=== PATIENT | female | born 1985 | race Caucasian/White ===

== ENCOUNTER 2016-08-23 18:13 | Emergency (ER) | payer OTHER ==
[2016-08-23 19:19] VITALS: BP 112/75; PULSE 80; TEMP 98.2; BMI 36.3
[2016-08-23] MEDS ORDERED: ACETAMINOPHEN 500 MG TABLET (FP) PO ONE (20:16)
[2016-08-23] MEDS ORDERED: ACETAMINOPHEN 500 MG TABLET (FP) ONE (20:23)
--- NOTE | 2016-08-23 20:29 | PDOC ---
[id number] [id number] RT KNEE PAIN Time Seen by Provider: 08/23/16 19:24 - History of Present Illness Initial Comments: 08/23/16 20:16 CHIEF COMPLAINT: R knee pain HISTORY OF PRESENT ILLNESS: 31 yo F presents to ED with pain to R knee. No recent travel or sick contacts. PAST MEDICAL HISTORY: Denies past medical history FAMILY HISTORY: Denies SURGICAL HISTORY: Denies ALLERGIES: No known drug allergies REVIEW OF SYSTEMS General/Constitutional: Denies fever or chills. Denies weakness, weight change. HEENT: Denies change in vision. Denies ear pain or discharge. Denies sore throat. Cardiovascular: Denies chest pain or shortness of breath. Respiratory: Denies cough, wheezing, or hemoptysis. Gastrointestinal: Denies nausea, vomiting, diarrhea or constipation. Denies rectal bleeding. Genitourinary: Denies dysuria, frequency, or change in urination. Musculoskeletal: R knee pain.Denies joint or muscle swelling or pain. Denies neck or back pain. Skin and breasts: Denies rash or easy bruising. PHYSICAL EXAM General Appearance: Well-appearing, appropriately dressed. No apparent distress , no intoxication. Respiratory/Chest: Lungs CTAB. Cardiovascular: RRR. S1, S2. Musculoskeletal/Extremities: Normal inspection. FROM of all extremities, normal capillary refill. Pelvis Stable. No CVA tenderness. No tenderness to extremities, pedal edema, swelling, erythema or deformity. Integumentary: Appropriate color, dry, warm. No cyanosis, erythema, jaundice or rash Neurologic: burlap roll coverer II-XII intact. Fully oriented, alert. Appropriate mood/affect. Motor strength 5/5. No appreciable EOM palsy, facial droop or sensory deficit. Past History - Past Medical History Allergies/Adverse Reactions: Allergies Allergy/AdvReac Type Severity Reaction Status Date / Time ibuprofen Allergy Mild Rash Verified 08/23/16 19:11 ketorolac tromethamine Allergy Mild Rash Verified 08/23/16 19:11 [From Toradol] naproxen [From Naprosyn] Allergy Mild Rash Verified 08/23/16 19:11 paroxetine HCl [From Paxil] Allergy Swelling Verified 08/23/16 19:11 sulfamethoxazole Allergy Swelling Verified 08/23/16 19:11 [From Bactrim] tramadol HCl [From Ultracet] Allergy Verified 08/23/16 19:11 trimethoprim [From Bactrim] Allergy Swelling Verified 08/23/16 19:11 Home Medications: Ambulatory Orders Aripiprazole [Abilify] 10 mg PO DAILY 06/26/16 Clonazepam [Klonopin] 0.5 mg PO TID 06/26/16 Venlafaxine HCl ER [Effexor Xr -] 150 mg PO DAILY 06/26/16 Cephalexin Monohydrate [Keflex -] 500 mg PO Q6H #20 capsule 06/27/16 Dibucaine 1% Top/Rectal Oint [Nupercainal (NF) -] 1 applic RC ASDIR #1 tube Hydrocortisone Acetate [Anusol Hc Suppository -] 25 mg RC DAILY PRN #14 supp.rect 06/27/16 Miconazole Nitrate [Monistat-7] 100 mg PV HS #7 supp.vag 06/27/16 Diabetes: Yes (type II diet controlled) Hypercholesterolemia: Yes Psychiatric Problems: Yes (ANXIETY, DEPRESSION, BIPOLOR WITH PSYCHOTIC FEATURES) Suicide Attempt (Hx): No - Surgical History Abdominal Surgery: Yes Orthopedic Surgery: Yes (knee surgery 2009) - Reproductive History (#): 4 Para: 4 Ectopic : Yes Polycystic Ovaries: Yes - Immunization History Immunization Up to Date: No - Psycho/Social/Smoking Cessation Hx Anxiety: Yes Suicidal Ideation: No Smoking History: Current every day smoker Have you smoked in the past 12 months: Yes Number of Cigarettes Smoked Daily: 10 Information on smoking cessation initiated: No 'Breaking Loose' booklet given: 06/26/16 Hx Alcohol Use: No Drug/Substance Use Hx: No Substance Use Type: None Hx Substance Use Treatment: No *Physical Exam - Vital Signs Last Vital Signs Temp Pulse Resp BP Pulse Ox 98.2 F 80 16 112/75 99 08/23/16 19:11 08/23/16 19:11 08/23/16 19:11 08/23/16 19:11 08/23/16 19:11 Medical Decision Making - Medical Decision Making 08/23/16 20:29 1-year-old female with history of diabetes, high cholesterol, depression and anxiety presents to fast track with right knee pain x 1 week. Exam unremarkable. At this time patient appears to be drug seeking. I-stop was referenced. Patient just filled a prescription for Percocet for 50 tablets on Aug 09. Discussed with patient to follow up with ortho for further evaluation of pain and possible referral to pain management. *DC/Admit/Observation/Transfer Diagnosis at time of Disposition: Knee pain, acute Qualifiers: Laterality: right Qualified Code(s): M25.561 - Pain in right knee - Discharge Dispostion Disposition: HOME Condition at time of disposition: Stable Admit: No - Referrals Referrals: Chasidy Ramirez MD [Primary Care Provider] - Db Lewis MD [Staff Physician] - Que Nesbitt MD [Staff Physician] - - Patient Instructions Printed Discharge Instructions: DI for Knee Pain Additional Instructions: Please follow up with orthopedics as discussed. If you experience loss of sensation, loss of bowel or bladder dysfunction, numbness or tingling to your leg, or any new or worsening symptoms, please return to the ER. - Post Discharge Activity Work/School Note: Back to Work
== END 2016-08-23 20:48 | disposition home or self-care (01) ==
LOC: JER 18:13
DX: M25.561 Pain in right knee (principal); E78.00 Pure hypercholesterolemia, unspecified; F41.8 Other specified anxiety disorders; E11.9 Type 2 diabetes mellitus without complications; F17.210 Nicotine dependence, cigarettes, uncomplicated
CPT/HCPCS: 99281-25

== ENCOUNTER 2016-09-30 07:54 | Emergency (ER) | payer OTHER ==
[2016-09-30 07:58] VITALS: TEMP 98.5; BMI 36.3
--- NOTE | 2016-09-30 08:11 | PDOC ---
History of Present Illness - General Chief Complaint: Pain Stated Complaint: PAIN Time Seen by Provider: 09/30/16 08:10 Past History - Past Medical History Allergies/Adverse Reactions: Allergies Allergy/AdvReac Type Severity Reaction Status Date / Time ibuprofen Allergy Mild Rash Verified 09/30/16 07:58 ketorolac tromethamine Allergy Mild Rash Verified 09/30/16 07:58 [From Toradol] naproxen [From Naprosyn] Allergy Mild Rash Verified 09/30/16 07:58 paroxetine HCl [From Paxil] Allergy Swelling Verified 09/30/16 07:58 sulfamethoxazole Allergy Swelling Verified 09/30/16 07:58 [From Bactrim] tramadol HCl [From Ultracet] Allergy Verified 09/30/16 07:58 trimethoprim [From Bactrim] Allergy Swelling Verified 09/30/16 07:58 Home Medications: Ambulatory Orders Aripiprazole [Abilify] 10 mg PO DAILY 06/26/16 Clonazepam [Klonopin] 0.5 mg PO TID 06/26/16 Venlafaxine HCl ER [Effexor Xr -] 150 mg PO DAILY 06/26/16 Cephalexin Monohydrate [Keflex -] 500 mg PO Q6H #20 capsule 06/27/16 Dibucaine 1% Top/Rectal Oint [Nupercainal (NF) -] 1 applic RC ASDIR #1 tube Hydrocortisone Acetate [Anusol Hc Suppository -] 25 mg RC DAILY PRN #14 supp.rect 06/27/16 Miconazole Nitrate [Monistat-7] 100 mg PV HS #7 supp.vag 06/27/16 Diabetes: Yes (type II diet controlled) Hypercholesterolemia: Yes Psychiatric Problems: Yes (ANXIETY, DEPRESSION, BIPOLOR WITH PSYCHOTIC FEATURES) Suicide Attempt (Hx): No - Surgical History Abdominal Surgery: Yes Orthopedic Surgery: Yes (knee surgery 2009) - Reproductive History (#): 4 Para: 4 Ectopic : Yes Polycystic Ovaries: Yes - Immunization History Immunization Up to Date: No - Psycho/Social/Smoking Cessation Hx Anxiety: Yes Suicidal Ideation: No Smoking History: Current every day smoker Have you smoked in the past 12 months: Yes Number of Cigarettes Smoked Daily: 10 Information on smoking cessation initiated: Yes 'Breaking Loose' booklet given: 09/30/16 Hx Alcohol Use: No Drug/Substance Use Hx: No Substance Use Type: None Hx Substance Use Treatment: No *Physical Exam - Vital Signs Last Vital Signs Temp Pulse Resp BP Pulse Ox 98.5 F 92 H 19 109/67 98 09/30/16 07:57 09/30/16 07:57 09/30/16 07:57 09/30/16 07:57 09/30/16 07:57
--- NOTE | 2016-09-30 08:29 | PDOC ---
History of Present Illness - General Chief Complaint: Pain Stated Complaint: PAIN Time Seen by Provider: 09/30/16 08:10 History Source: Patient Exam Limitations: No Limitations - History of Present Illness Initial Comments: CHIEF COMPLAINT: 31 y/o afebrile female with PMH anxiety, depression, HLD, slipped discs in back (on daily [place]) c/o RUQ abdominal pain since last night. HISTORY OF PRESENT ILLNESS: The patient states the pain was initially intermittent but has become constant and wraps around to her right upper back. She is also very nauseous. She denies f/c, v/d, CP, SOB, hematuria, dysuria. Vital signs on arrival are within normal limits. REVIEW OF SYSTEMS: GENERAL/CONSTITUTIONAL: No fever/chills. No weakness. No weight change. HEAD, EYES, EARS, NOSE AND THROAT: No change in vision. No ear pain or discharge. No sore throat. CARDIOVASCULAR: No chest pain or shortness of breath. RESPIRATORY: No cough, wheezing, or hemoptysis. GASTROINTESTINAL: +nausea and RUQ abd pain. No vomiting or diarrhea. GENITOURINARY: No dysuria, frequency, or change in urination. MUSCULOSKELETAL: No joint or muscle swelling or pain. No neck or back pain. SKIN: No rash or easy bruising. NEUROLOGIC: No headache, vertigo, loss of consciousness, or loss of sensation. PHYSICAL EXAM: GENERAL: The patient is awake, alert, and fully oriented, in moderate obvious discomfort. She is obese and ambulatory. HEAD: Normal with no signs of trauma. ENT: Pupils equal, round and reactive to light, extraocular movements intact, sclera anicteric, conjunctiva clear. Neck supple. ABDOMEN: Soft, non-distended, TTP of RUQ with positive Cheatham's sign. No rebound, guarding or rigidity. BACK: No CVA TTP b/l. EXTREMITIES: Normal range of motion, no edema. NEUROLOGICAL: Normal speech, normal gait. CN II-XII grossly intact. PSYCH: Normal mood, normal affect. SKIN: Warm, dry, normal turgor, no rashes or lesions noted. Past History - Past Medical History Allergies/Adverse Reactions: Allergies Allergy/AdvReac Type Severity Reaction Status Date / Time ibuprofen Allergy Mild Rash Verified 09/30/16 07:58 ketorolac tromethamine Allergy Mild Rash Verified 09/30/16 07:58 [From Toradol] naproxen [From Naprosyn] Allergy Mild Rash Verified 09/30/16 07:58 paroxetine HCl [From Paxil] Allergy Swelling Verified 09/30/16 07:58 sulfamethoxazole Allergy Swelling Verified 09/30/16 07:58 [From Bactrim] tramadol HCl [From Ultracet] Allergy Verified 09/30/16 07:58 trimethoprim [From Bactrim] Allergy Swelling Verified 09/30/16 07:58 Home Medications: Ambulatory Orders Aripiprazole [Abilify] 10 mg PO DAILY 06/26/16 Clonazepam [Klonopin] 0.5 mg PO AM 06/26/16 Venlafaxine HCl ER [Effexor Xr -] 150 mg PO DAILY 06/26/16 Clonazepam [Klonopin] 1 mg PO HS 09/30/16 Hydrocodone/Acetaminophen [Vicodin 5-300 mg Tablet] 1 each PO Q8H PRN 09/30/16 Ondansetron [Zofran Odt -] 4 mg SL TID #10 od.tablet 09/30/16 Diabetes: Yes (type II diet controlled) Hypercholesterolemia: Yes Psychiatric Problems: Yes (ANXIETY, DEPRESSION, BIPOLOR WITH PSYCHOTIC FEATURES) Suicide Attempt (Hx): No - Surgical History Abdominal Surgery: Yes Orthopedic Surgery: Yes (knee surgery 2009) - Reproductive History (#): 4 Para: 4 Ectopic : Yes Polycystic Ovaries: Yes - Immunization History Immunization Up to Date: No - Psycho/Social/Smoking Cessation Hx Anxiety: Yes Suicidal Ideation: No Smoking History: Current every day smoker Have you smoked in the past 12 months: Yes Number of Cigarettes Smoked Daily: 10 Information on smoking cessation initiated: Yes 'Breaking Loose' booklet given: 09/30/16 Hx Alcohol Use: No Drug/Substance Use Hx: No Substance Use Type: None Hx Substance Use Treatment: No Abd/GI Specific PMHX - Complaint Specific PMHX Gall Bladder Disease: No GERD: No *Physical Exam - Vital Signs Last Vital Signs Temp Pulse Resp BP Pulse Ox 98.5 F 92 H 19 109/67 98 09/30/16 07:57 09/30/16 07:57 09/30/16 07:57 09/30/16 07:57 09/30/16 07:57 ED Treatment Course - LABORATORY CBC & Chemistry Diagram: 09/30/16 09:05 09/30/16 09:05 Medical Decision Making - Medical Decision Making A/P: 31 y/o afebrile female with RUQ abdominal pain and nausea since last night. She is female, fair, obese with 4 children. Suspect cholecystitis. Plan is as follows: 1. UA/culture/hcg 2. Labs 3. IV fluids/zofran 4. Gallbladder ultrasound Labs unremarkable UA unremarkable hcg - negative Ordered IV morphine 2mg Gallbladder ultrasound IMPRESSION: No evidence of cholelithiasis or cholecystitis. Spoke with the patient and she informs me that her pain has come down in severity and she is much more comfortable. She is no longer nauseous. I informed her all labs and ultrasound were normal. I will discharge her to home with rx for zofran. Suggested she stick to clear liquids for now and slowly introduce bland foods. Instructed her to return to the ER with any worsening or concerning symptoms. The patient verbalizes understanding of all instructions, has no further questions and is awaiting discharge. *DC/Admit/Observation/Transfer Diagnosis at time of Disposition: Abdominal pain Qualifiers: Abdominal location: right lower quadrant Qualified Code(s): R10.31 - Right lower quadrant pain - Discharge Dispostion Disposition: HOME Condition at time of disposition: Improved - Referrals Referrals: Chasidy Ramirez MD [Primary Care Provider] - - Patient Instructions Printed Discharge Instructions: DI for Abdominal Pain-Adult Additional Instructions: Discharge Instructions: -Take zofran as prescribed if needed for nausea/vomiting -Continue taking your prescribed pain medication at home -Drink clear liquids until feeling better, then slowly start eating bland food -Follow up with your doctor on Sunday -Return to the ER with any worsening or concerning symptoms - Post Discharge Activity Work/School Note: Back to Work
[2016-09-30] MEDS ORDERED: ONDANSETRON 4 MG/2 ML VIAL IVPUSH ONE (08:30)
[2016-09-30] MEDS ORDERED: SODIUM CHLORIDE 1,000 ML IV STA (08:30)
[2016-09-30] MEDS ORDERED: ONDANSETRON 4 MG/2 ML VIAL ONE (09:15)
[2016-09-30 09:27] LABS: BASOPHIL 0.7 % (0-2.0); EOSINOPHIL 4.6 % (0-4.5); MCH 31.9 pg (25.7-33.7); MCHC 33.9 g/dl (32.0-36.0); MEAN CELL VOLUME 94.1 fl (80-96); MEAN PLT VOLUME 7.3 fl (7.5-11.1); NEUTROPHILS 58.1 % (42.8-82.8); PLATELET COUNT 228 K/MM3 (134-434); RDW 13.3 % (11.6-15.6); WHITE BLOOD COUNT 6.9 K/mm3 (4.0-10.0)
[2016-09-30 09:30] LABS: URINE APPEARANCE CLEAR; URINE BILIRUBIN NEGATIVE (NEGATIVE); URINE BLOOD NEGATIVE (NEGATIVE); URINE COLOR LTYELLOW; URINE GLUCOSE (UA) NEGATIVE (NEGATIVE); URINE KETONE NEGATIVE (NEGATIVE); URINE LEUK ESTERASE NEGATIVE (NEGATIVE); URINE NITRITE NEGATIVE (NEGATIVE); URINE PROTEIN NEGATIVE (NEGATIVE); URINE UROBILINOGEN NEGATIVE E.U./dl (0.2-1.0)
[2016-09-30] MEDS ORDERED: morphine CARPU-JECT 2 MG/1 ML DISP.SYRIN IVPUSH ONE (09:49)
[2016-09-30 09:50] LABS: ALBUMIN 3.9 g/dl (3.4-5.0); ALK PHOS 59 U/L (45-117); ANION GAP 7 (8-16); BILIRUBIN,TOTAL 0.2 mg/dL (0.2-1.0); CALCIUM 8.6 mg/dL (8.5-10.1); CO2 26 mmol/L (21-32); CREATININE 0.6 mg/dL (0.55-1.02); GLUCOSE,RANDOM 90 mg/dL (74-106); SGOT/AST 16 U/L (15-37); SGPT/ALT 45 U/L (12-78); TOT PROT 7.1 g/dl (6.4-8.2)
[2016-09-30] MEDS ORDERED: morphine CARPU-JECT 2 MG/1 ML DISP.SYRIN ONE (09:53)
[2016-09-30 13:04] VITALS: BP 113/65; PULSE 79
== END 2016-09-30 12:30 | disposition home or self-care (01) ==
LOC: JER 07:54
PROC: 3E033NZ Introduction of Analgesics, Hypnotics, Sedatives into Peripheral Vein, Percutaneous Approach (ICD-10-PCS; principal; 2016-09-30)
PROC: 3E033GC Introduction of Other Therapeutic Substance into Peripheral Vein, Percutaneous Approach (ICD-10-PCS; 2016-09-30)
DX: R10.31 Right lower quadrant pain (principal); E11.9 Type 2 diabetes mellitus without complications; E78.00 Pure hypercholesterolemia, unspecified; F32.9 Major depressive disorder, single episode, unspecified; F41.9 Anxiety disorder, unspecified
CPT/HCPCS: 36415; 76705-TC; 80053; 81003; 83690; 84703; 85025; 96374; 96375; 99283-25

== ENCOUNTER 2016-10-21 11:35 | Emergency (ER) | payer OTHER ==
[2016-10-21 11:39] VITALS: BP 118/64; PULSE 96; TEMP 98.5; BMI 36.3
[2016-10-21] MEDS ORDERED: ONDANSETRON *ODT* 4 MG TABLET SL ONE (12:23)
--- NOTE | 2016-10-21 12:46 | PDOC ---
History of Present Illness - General Chief Complaint: Pain Stated Complaint: ABD PAIN Time Seen by Provider: 10/21/16 12:09 History Source: Patient Exam Limitations: No Limitations - History of Present Illness Travel History: No Initial Comments: 10/21/16 12:43 31 yr female with dysuria suprapubic pain urinary urgency for one week. denies fever no back pain no diarrhea, no vomiting. Pt denies vaginal discharge states LMP 6 years ago post hysterectomy. Quality: reports: mild Abdominal Pain Onset Location: reports: suprapubic Pain Radiation: reports: no radiation Past History - Past Medical History Allergies/Adverse Reactions: Allergies Allergy/AdvReac Type Severity Reaction Status Date / Time ibuprofen Allergy Mild Rash Verified 10/21/16 11:39 ketorolac tromethamine Allergy Mild Rash Verified 09/30/16 07:58 [From Toradol] naproxen [From Naprosyn] Allergy Mild Rash Verified 10/21/16 11:39 paroxetine HCl [From Paxil] Allergy Swelling Verified 10/21/16 11:39 sulfamethoxazole Allergy Swelling Verified 10/21/16 11:39 [From Bactrim] tramadol HCl [From Ultracet] Allergy Verified 10/21/16 11:39 trimethoprim [From Bactrim] Allergy Swelling Verified 10/21/16 11:39 Home Medications: Ambulatory Orders Aripiprazole [Abilify] 10 mg PO DAILY 06/26/16 Clonazepam [Klonopin] 0.5 mg PO AM 06/26/16 Venlafaxine HCl ER [Effexor Xr -] 150 mg PO DAILY 06/26/16 Clonazepam [Klonopin] 1 mg PO HS 09/30/16 Hydrocodone/Acetaminophen [Vicodin 5-300 mg Tablet] 1 each PO Q8H PRN 09/30/16 Cephalexin Monohydrate [Keflex -] 500 mg PO BID #14 capsule 10/21/16 Phenazopyridine HCl [Pyridium] 200 mg PO TID PRN #9 tablet 10/21/16 Diabetes: Yes (type II diet controlled) Hypercholesterolemia: Yes Psychiatric Problems: Yes (ANXIETY, DEPRESSION, BIPOLOR WITH PSYCHOTIC FEATURES) Suicide Attempt (Hx): No - Surgical History Abdominal Surgery: Yes (hysterectomy ) Orthopedic Surgery: Yes (knee surgery 2009) - Reproductive History (#): 4 Para: 4 Ectopic : Yes Polycystic Ovaries: Yes - Immunization History Immunization Up to Date: No - Psycho/Social/Smoking Cessation Hx Anxiety: No Suicidal Ideation: No Smoking History: Current every day smoker Have you smoked in the past 12 months: Yes Number of Cigarettes Smoked Daily: 10 Information on smoking cessation initiated: No 'Breaking Loose' booklet given: 09/30/16 Hx Alcohol Use: No Drug/Substance Use Hx: No Substance Use Type: None Hx Substance Use Treatment: No Abd/GI Specific PMHX - Complaint Specific PMHX Gall Bladder Disease: No GERD: No Review of Systems - Review of Systems Able to Perform ROS?: Yes Is the patient limited Pashto proficient: No Constitutional: No: Symptoms Reported HEENTM: No: Symptoms Reported Respiratory: No: Symptoms reported Cardiac (ROS): No: Symptoms Reported ABD/GI: Yes: Nausea : Yes: Symptoms Reported, See HPI Musculoskeletal: No: Symptoms Reported Integumentary: No: Symptoms Reported Neurological: No: Symptoms reported *Physical Exam - Vital Signs Last Vital Signs Temp Pulse Resp BP Pulse Ox 98.5 F 96 H 20 118/64 98 10/21/16 11:36 10/21/16 11:36 10/21/16 11:36 10/21/16 11:36 10/21/16 11:36 - Physical Exam General Appearance: Yes: Nourished, Appropriately Dressed HEENT: positive: EOMI, YANA, Normal ENT Inspection, TMs Normal, Pharynx Normal Neck: positive: Supple. negative: Tender Respiratory/Chest: positive: Lungs Clear, Normal Breath Sounds. negative: Chest Tender Cardiovascular: positive: Regular Rhythm, Regular Rate Gastrointestinal/Abdominal: positive: Normal Bowel Sounds, Soft. negative: Tender Musculoskeletal: positive: Normal Inspection Extremity: positive: Normal Capillary Refill, Normal Inspection, Normal Range of Motion Integumentary: positive: Normal Color, Dry, Warm Neurologic: positive: Fully Oriented, Alert, Normal Mood/Affect, Normal Response , Motor Strength 5/5 Medical Decision Making - Medical Decision Making 10/21/16 13:02 cc: urinary dysuria, urgency and suprapubic discomfort one week will check urine for UTI no fever, no chills no back pain no vomiting or diarrhea afebrile tolerating po well 10/21/16 13:03 *DC/Admit/Observation/Transfer Diagnosis at time of Disposition: UTI (urinary tract infection) Qualifiers: Urinary tract infection type: acute cystitis Hematuria presence: with hematuria Qualified Code(s): N30.01 - Acute cystitis with hematuria - Discharge Dispostion Disposition: HOME Condition at time of disposition: Good - Prescriptions Prescriptions: Cephalexin Monohydrate [Keflex -] 500 mg PO BID #14 capsule Phenazopyridine HCl [Pyridium] 200 mg PO TID PRN #9 tablet PRN Reason: Pain - Patient Instructions Additional Instructions: drink pleanty of fluids to stay hydrated always empty your bladder before and after intercourse take the medications as prescribed take pyridium for bladder pain follow with your doctor in one week for a repeat urine culture return to ER for any worsening symptoms
[2016-10-21 12:47] LABS: URINE APPEARANCE CLOUDY; URINE BILIRUBIN NEGATIVE (NEGATIVE); URINE COLOR LTYELLOW; URINE GLUCOSE (UA) NEGATIVE (NEGATIVE); URINE KETONE NEGATIVE (NEGATIVE); URINE NITRITE NEGATIVE (NEGATIVE); URINE UROBILINOGEN NEGATIVE E.U./dl (0.2-1.0)
[2016-10-21 12:51] LABS: URINE BLOOD 2+ (NEGATIVE); URINE LEUK ESTERASE 3+ (NEGATIVE); URINE PROTEIN 1+ (NEGATIVE)
[2016-10-21 12:54] LABS: URINE MUCUS RARE; URINE RBC 3 /hpf (0-3); URINE WBC 280 /hpf (3-5); YEAST MANY
[2016-10-21] MEDS ORDERED: CEPHALEXIN MONOHYDRATE 500 MG CAPSULE (UD) PO ONE (13:01)
[2016-10-21] MEDS ORDERED: FLUCONAZOLE 100 MG TABLET (UD) PO ONE (13:01)
[2016-10-21] MEDS ORDERED: PHENAZOPYRIDINE HCL 100 MG TABLET (FP) PO ONE (13:03)
[2016-10-21] MEDS ORDERED: ONDANSETRON *ODT* 4 MG TABLET ONE (13:06)
[2016-10-21] MEDS ORDERED: CEPHALEXIN MONOHYDRATE 250 MG CAPSULE (FP) ONE (13:06)
[2016-10-21] MEDS ORDERED: PHENAZOPYRIDINE HCL 100 MG TABLET (FP) ONE (13:06)
[2016-10-21] MEDS ORDERED: FLUCONAZOLE 100 MG TABLET (UD) ONE (13:06)
--- NOTE | 2016-10-24 13:14 | PDOC ---
Patient Follow-up (Call Back) - Post ED Follow - Up Condition at time of discharge: Good Disposition at time of original discharge: HOME Reason for Call Back: Abnwl. Microbiology (URINE C & S + Proteus species not sensitive to first generation cephaloporins, pt. was discharged on keflex, called pt. left message to call back will need to change medication to possible levaquin.)
--- NOTE | 2016-10-24 19:32 | PDOC ---
Patient Follow-up (Call Back) - Post ED Follow - Up Condition at time of discharge: Good Disposition at time of original discharge: HOME Reason for Call Back: Abnwl. Microbiology (urine C & S 10/21/16 + for Proteus species not sensitive to first generation cephalosporin, pt. discharge on keflex need to change to levaquin, left message for 2 days not call back. Certified letter sent to call back)
--- NOTE | 2016-10-25 09:41 | PDOC ---
Patient Follow-up (Call Back) - Post ED Follow - Up Chief Complaint: Urinary Problem Condition at time of discharge: Good Disposition at time of original discharge: HOME Reason for Call Back: Abnwl. Microbiology Signs/Symptoms Improved: Yes - Disposition Referral:: urology Additional Instructions/Notes: Notified by phone that urine culture reports resistance to Keflex which is what she had been prescribed for her UTI. Changed medication to Levaquin 500 mg daily which sensitivity reports sensitive and that prescription transmitted to [facility] on [address]. For follow-up with PMD and urology consultation.
== END 2016-10-21 13:24 | disposition home or self-care (01) ==
LOC: JER 11:35
DX: N30.01 Acute cystitis with hematuria (principal); I10 Essential (primary) hypertension; E11.9 Type 2 diabetes mellitus without complications; F41.9 Anxiety disorder, unspecified; F31.9 Bipolar disorder, unspecified
CPT/HCPCS: 81003; 81015; 84703; 87086; 87186; 99283-25

== ENCOUNTER 2016-11-11 02:51 | Emergency (ER) | payer OTHER ==
[2016-11-11 03:10] VITALS: BP 129/63; PULSE 75; TEMP 97.5; BMI 33.6
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
== END 2016-11-11 04:53 | disposition home or self-care (01) ==
LOC: JER 02:51
DX: F41.9 Anxiety disorder, unspecified (principal)
CPT/HCPCS: 99282-25

== ENCOUNTER 2016-12-05 14:52 | Emergency (ER) | payer OTHER ==
[2016-12-05 15:24] VITALS: BMI 36.3
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
--- NOTE | 2016-12-05 19:23 | CON.PSY ---
Psychiatry Consult Chief Complaint: Asked to see this patient, a 31 year old female for suicidal ideation. History of Present Problem: Patient states that she has a hx of suicidal attempts x 5 times mostly by overdose of pills. She is originally from [place] where, according to her, she has been hospitalized for suicidal attempts. Her last attempt led to hospitalization at [facility] 6 months ago when she took an overdose of pills. She could not remember the names of the pills. She has a psychiatry history of depression/anxiety and chronic pain for which she takes opiods and benzo, abilifiy and effexor. According to her she was doing 'ok' taking her meds when about last two months she broke up with her live in boyfriend and she spiralled down. She stopped taking her meds, did not keep appointment with both pain doctor and psychiatrist at [facility]. She feels helpless, hopeless at this time. Symptoms: reports: Depressed Mood, Worthlessness/Guilt, Suicidality, Self destructive thoughts, Hopelessness, Sleep Disturbance, Impaired Concentration, Anxiety, Restlessness - Allergies Allergies: Allergies Allergy/AdvReac Type Severity Reaction Status Date / Time ibuprofen Allergy Mild Rash Verified 12/05/16 15:24 ketorolac tromethamine Allergy Mild Rash Verified 12/05/16 15:24 [From Toradol] naproxen [From Naprosyn] Allergy Mild Rash Verified 12/05/16 15:24 paroxetine HCl [From Paxil] Allergy Swelling Verified 12/05/16 15:24 sulfamethoxazole Allergy Swelling Verified 12/05/16 15:24 [From Bactrim] tramadol HCl [From Ultracet] Allergy Verified 12/05/16 15:24 trimethoprim [From Bactrim] Allergy Swelling Verified 12/05/16 15:24 - Current Living Status Usual Living Arrangement: Other (with ex boyfriend- has no where to go) - Current Mental Status Evaluation Appearance: Disheveled Attitude: Cooperative - Affect Affect: Labile Appropriateness: Not Appropriate - Mood Mood: Depressed, Anxious - Speech/Language Expressive: Coherent Receptive: Age Appropriate Comprehension of Spoken Words - Thought Process Thought Process: Intact - Thought Content Hallucinations: Absent Delusions: Absent - Self Perception Self Perception: No Impairment - Cognition Attention: Alert Orientation: Time, Person, Place - Concentration Simple Calculations Intact: Yes - Abstraction Proverb Interpretation: Intact Judgement: Moderately Impaired - Insight Insight: Impaired - Impulse Control Impulse Control: Moderately Impaired - Suicidal Ideation Suicidal Ideation: Yes (hx of suicidal attempts in the past as well) - Homicidal Ideation Homicidal Ideation: No Assessment/Plan Patient is in need of inpatient psychiatric hospitalization at this time due to her suicidal ideation/plan "to take pills' She has done this in the past approx 4 times Last took vicodin last pm Rec Inpatient hospitalization for suicidal ideation with intent/plan Head Nurse was made aware
[2016-12-05 19:44] LABS: BASOPHIL 0.6 % (0-2.0); EOSINOPHIL 2.1 % (0-4.5); MCH 31.4 pg (25.7-33.7); MCHC 33.7 g/dl (32.0-36.0); MEAN CELL VOLUME 93.1 fl (80-96); MEAN PLT VOLUME 7.9 fl (7.5-11.1); NEUTROPHILS 54.3 % (42.8-82.8); PLATELET COUNT 224 K/MM3 (134-434); RDW 13.4 % (11.6-15.6); WHITE BLOOD COUNT 6.2 K/mm3 (4.0-10.0)
[2016-12-05 19:55] LABS: URINE MARIJUANA THC NEGATIVE ng/ml (CUTOFF=50)
[2016-12-05 20:11] LABS: ALBUMIN 3.7 g/dl (3.4-5.0); ANION GAP 9 (8-16); BILIRUBIN,TOTAL 0.1 mg/dL (0.2-1.0); CALCIUM 8.5 mg/dL (8.5-10.1); CO2 27 mmol/L (21-32); CREATININE 0.6 mg/dL (0.55-1.02); GLUCOSE,RANDOM 90 mg/dL (74-106); SGOT/AST 17 U/L (15-37); SGPT/ALT 33 U/L (12-78); TOT PROT 6.6 g/dl (6.4-8.2)
[2016-12-05 20:12] LABS: ALK PHOS 56 U/L (45-117)
[2016-12-05] MEDS ORDERED: ALPRAZolam 0.25 MG TABLET PO ONE (21:16)
[2016-12-05] MEDS ORDERED: ALPRAZolam 0.25 MG TABLET ONE (21:21)
[2016-12-05] MEDS ORDERED: ACETAMINOPHEN 325 MG TABLET (FP) ONE (22:32)
[2016-12-05] MEDS ORDERED: ACETAMINOPHEN 325 MG TABLET (FP) PO ONE (22:35)
[2016-12-06 07:01] VITALS: BP 116/84; PULSE 82; TEMP 98.2
--- NOTE | 2016-12-06 12:46 | EKG ---
Test Reason : Blood Pressure : / mmHG Vent. Rate : 066 BPM Atrial Rate : 066 BPM P-R Int : 166 ms QRS Dur : 104 ms QT Int : 398 ms P-R-T Axes : 056 -32 034 degrees QTc Int : 417 ms NORMAL SINUS RHYTHM LEFT AXIS DEVIATION INFERIOR INFARCT , AGE UNDETERMINED ABNORMAL ECG WHEN COMPARED WITH ECG OF 28-SEP-2015 23:15, NO SIGNIFICANT CHANGE WAS FOUND Confirmed by BRADLY LOOMIS, TIMI ([id number]) on 12/06/2016 12:46:16 PM Referred By: Confirmed By:TIMI ABDULLAHI MD
== END 2016-12-06 07:09 | disposition short-term general hospital (02) ==
LOC: JER 14:52
DX: R45.851 Suicidal ideations (principal); F34.1 Dysthymic disorder; F31.89 Other bipolar disorder; F41.8 Other specified anxiety disorders
CPT/HCPCS: 36415; 80053; 80307; 84703; 85025; 93005; 93010; 99285-25